=== PATIENT | male | born 1995 | race Caucasian/White ===

== ENCOUNTER → 2019-08-28 | Outpatient (CLI) | payer BC, OTHER ==
[~2019-08-28] MED LIST: ALBU90OI; HYDACE5 PO; MONT5TCH PO; POLY17UD; [UNRECOGNIZED DRUG - OTHER]
[2019-08-28 12:49] LABS: BASOPHILS ABSOLUTE AUTO 0.05 K/mm3 (0.00-0.23); BASOPHILS PERCENT AUTO 1 % (0-2); EOSINOPHILS ABSOLUTE AUTO 0.34 K/mm3 (0.00-0.68); EOSINOPHILS PERCENT AUTO 5 % (0-6); Hematocrit 45.2 % (37.0-53.0); IMMATURE GRAN ABSOLUTE AUTO 0.02 K/mm3 (0.00-0.10); IMMATURE GRAN PERCENT AUTO 0 % (0-1); LYMPHOCYTES ABSOLUTE AUTO 1.76 K/mm3 (0.84-5.20); LYMPHOCYTES PERCENT AUTO 24 % (21-46); MONOCYTES ABSOLUTE AUTO 0.46 K/mm3 (0.16-1.47); MONOCYTES PERCENT AUTO 6 % (4-13); Mean Corpuscular HGB 31.4 pg (26.0-34.0); Mean Corpuscular HGB Conc 33.2 g/dL (31.5-36.5); Mean Corpuscular Volume 95 fL (80-100); Mean Platelet Volume 9.7 fL (9.1-12.4); NEUTROPHILS ABSOLUTE AUTO 4.73 K/mm3 (1.96-9.15); NEUTROPHILS PERCENT AUTO 64 % (41-73); Platelet Count 303 K/mm3 (150-400); RDW Standard Deviation 42.4 fL (35.1-46.3); Red Blood Cell Count 4.77 M/mm3 (4.30-5.90); White Blood Cell Count 7.36 K/mm3 (4.00-11.30)
[2019-08-28 13:09] LABS: Alanine Aminotransfer (ALT/SGP 26 U/L (12-78); Albumin, Blood 3.7 g/dL (3.4-5.0); Albumin/Globulin Ratio 1.3 (0.8-1.8); Alk Phos 78 U/L (50-136); Anion Gap 6 mmol/L (6-16); Aspartate Aminotrans (AST/SGOT 12 U/L (12-37); Bilirubin, Total 0.4 mg/dL (0.1-1.0); Blood Urea Nitrogen 10 mg/dL (8-24); Bun/Creatinine Ratio 11.1 (12.0-20.0); CO2, Blood 26 mmol/L (21-32); Calcium, Blood 8.9 mg/dL (8.5-10.1); Chloride, Blood 110 mmol/L (98-108); Globulin, Blood 2.8 g/dL (2.2-4.0); Glomerular Filtration Rate >60 (60-); Glucose, Blood 121 mg/dL (70-99); Potassium, Blood 4.4 mmol/L (3.5-5.5); Sodium, Blood 142 mmol/L (136-145); Total Protein, Blood 6.5 g/dL (6.4-8.2)
== END ==
LOC: LAB SHORT 11:23 → LAB 11:23
PROVIDERS: Nurse Practitioner
DX: M79.672 Pain in left foot (principal)
CPT/HCPCS: 80053; 85025

== ENCOUNTER 2020-10-03 19:34 | Emergency (ER) | payer BC, OTHER ==
[~2020-10-03] VITALS: Ht 180.3 cm; Wt 72.6 kg
[2020-10-03] MEDS ORDERED: Prednisone20 MG PO (21:43)
== END 2020-10-03 21:51 | disposition home or self-care (01) ==
LOC: ER 19:34
DX: T43.621A Poisoning by amphetamines, accidental (unintentional), initial encounter (principal); R06.02 Shortness of breath; Z79.899 Other long term (current) drug therapy
CPT/HCPCS: 36415; 71045; 93005; 93010; 94644; 96374; 99285-25; J2930

== ENCOUNTER 2021-06-23 22:23 | Emergency (ER) | payer BC, OTHER ==
[~2021-06-23] VITALS: Ht 182.9 cm; Wt 77.1 kg
[~2021-06-23 22:23] MED LIST changes: +Prednisone20 MG PO
[2021-06-23] MEDS ORDERED: Ventolin/Prove6.7 GM INH (22:52)
[2021-06-24] MEDS ORDERED: EPIPEN0.3 MG/0.3 IM (01:52)
== END 2021-06-24 01:58 | disposition left against medical advice (07) ==
LOC: ER 22:23
DX: T78.01XA Anaphylactic reaction due to peanuts, initial encounter (principal); J45.909 Unspecified asthma, uncomplicated; F17.210 Nicotine dependence, cigarettes, uncomplicated; Z91.010 Allergy to peanuts; Z91.018 Allergy to other foods; Z79.899 Other long term (current) drug therapy
CPT/HCPCS: 94640; 96372-59; 96374; 96375; 99285-25; J0171; J1200; J2930